=== PATIENT | female | born 1965 | race Caucasian/White ===

== ENCOUNTER 2018-01-19 16:33 | Emergency (ER) | payer OTHER ==
[~2018-01-19] VITALS: Ht 175.3 cm; Wt 74.8 kg
[2018-01-19] MEDS ORDERED: TRAMADOL HCL 50 MG TAB PO ONE (17:00)
--- NOTE | 2018-01-19 18:08 | Diagnostic Imaging Report ---
HAND 3+ VIEWS RIGHT - 3 views HISTORY: Pain COMPARISON: None available. FINDINGS: Bones: No acute displaced fracture. Osseous alignment is within normal limits. Joints: The joint spaces are well-maintained. Soft tissues: The soft tissues appear unremarkable. IMPRESSION: No acute osseous abnormality. Signed by: Dr. Ralph Alfaro M.D. on 01/19/2018 6:04 PM
== END 2018-01-19 18:57 | disposition home or self-care (01) ==
LOC: ER 16:33
DX: S62.614A Displaced fracture of proximal phalanx of right ring finger, initial encounter for closed fracture (principal); S00.531A Contusion of lip, initial encounter; W01.0XXA Fall on same level from slipping, tripping and stumbling without subsequent striking against object, initial encounter; Y92.019 Unspecified place in single-family (private) house as the place of occurrence of the external cause; I10 Essential (primary) hypertension; E89.0 Postprocedural hypothyroidism
CPT/HCPCS: 99283

== ENCOUNTER 2021-03-06 09:57 | Inpatient (IN) | payer OTHER ==
[2021-03-06] VITALS (16 sets, daily range): BP systolic 84–167; BP diastolic 61–88
[~2021-03-06] VITALS: Ht 175.3 cm; Wt 76.2 kg
[2021-03-06] MEDS ORDERED: SODIUM CHLORIDE 0.9% 1000ML 1,000 ML IV STA ×3 (10:04→11:20)
[2021-03-06] MEDS ORDERED: SODIUM CHLORIDE 0.9% 1000ML 2,000 ML ONE (10:14)
[2021-03-06 10:21] LABS: BASOPHILS % 0.8 % (0.0-1.0); EOSINOPHILS % 0.6 % (0.0-6.0); LYMPHOCYTES # (AUTO) 0.8 (1.0-3.2); LYMPHOCYTES % 16.7 % (18.0-39.1); MEAN CORPUSCULAR HEMOGLOBIN 41.5 pg (28-32); MEAN CORPUSCULAR HGB CONC 34.9 g/dL (31-35); MEAN CORPUSCULAR VOLUME 118.9 fL (81-99); MONOCYTES # (AUTO) 0.3 (0.2-0.8); MONOCYTES % 6.8 % (4.4-11.3); NEUTROPHILS # (AUTO) 3.5 (2.1-6.9); PLATELET COUNT 144 x10e3/uL (140-360); RED BLOOD COUNT 1.64 x10e6/uL (3.6-5.1); RED CELL DISTRIBUTION WIDTH 15.1 % (11.7-14.4)
[2021-03-06 10:43] LABS: HEMATOCRIT 19.5 % (34.2-44.1); HEMOGLOBIN 6.8 g/dL (12.0-16.0)
[2021-03-06] MEDS ORDERED: SODIUM CHLORIDE 0.9% 250ML 250 ML IV ONE (10:45)
[2021-03-06] MEDS ORDERED: PIPERACILLIN/TAZOBAC 3.375 GM in SODIUM CHLORIDE 0.9% 50ML 50 ML IV SCH (11:00)
[2021-03-06 11:10] LABS: ANISOCYTOSIS SLIGHT; PLATELET ESTIMATE ADEQUATE; PLATELET MORPHOLOGY COMMENT NORMAL; RBC MORPHOLOGY COMMENT ABNORMAL
[2021-03-06 11:16] LABS: ALANINE AMINOTRANSFERASE 83 IU/L (0-55); ALBUMIN 3.1 g/dL (3.5-5.0); ALBUMIN/GLOBULIN RATIO 1.4 (0.8-2.0); ALKALINE PHOSPHATASE 71 IU/L (40-150); ANION GAP 20.5 mmol/L (8-16); BLOOD UREA NITROGEN 10 mg/dL (7-26); BUN/CREATININE RATIO 12 (6-25); CALCIUM 7.3 mg/dL (8.4-10.2); CARBON DIOXIDE 16 mmol/L (22-29); CHLORIDE 103 mmol/L (98-107); CREATINE KINASE 342 IU/L (29-168); CREATININE, SERUM 0.84 mg/dL (0.57-1.11); EST GLOMERULAR FILTRATION RATE > 60 ML/MIN (60-); GLUCOSE 88 mg/dL (74-118); POTASSIUM 3.5 mmol/L (3.5-5.1); SODIUM 136 mmol/L (136-145)
[2021-03-06] MEDS ORDERED: KETOROLAC TROMETHAMINE 30 MG/ML VIAL IV STA (11:20)
[2021-03-06] MEDS ORDERED: ACETAMINOPHEN 325 MG TAB PO STA (11:20)
[2021-03-06] MEDS ORDERED: FENTANYL CITRATE/PF 100MCG/2 ML INJ IV PRN (13:15)
[2021-03-06] MEDS ORDERED: SODIUM CHLORIDE 0.9% 50ML 50 ML ONE (13:56)
[2021-03-06] MEDS ORDERED: IOPAMIDOL 370 MG/ML 200 ML INFUS..BTL INJ ONE (13:56)
[2021-03-06] MEDS ORDERED: SODIUM CHLORIDE 0.9% 500ML 500 ML ONE (14:01)
[2021-03-06] MEDS ORDERED: HYDROMORPHONE 1MG/1ML INJ IV STA (14:33)
[2021-03-06] MEDS ORDERED: HYDROMORPHONE 1MG/1ML INJ IV PRN (14:45)
[2021-03-06] MEDS ORDERED: ONDANSETRON HCL INJ 2MG/ML 2ML 2 MG/ML VIAL IV PRN (14:45)
[2021-03-06] MEDS ORDERED: SODIUM CHLORIDE 0.9% 250ML 250 ML ONE (14:53)
[2021-03-06 15:24] LABS: CLARITY,URINE SL CLOUDY (CLEAR); COLOR,URINE YELLOW (YELLOW); KETONES,URINE TRACE (NEGATIVE); LEUKOCYTE ESTERASE ,URINE NEGATIVE (NEGATIVE); NITRITE,URINE NEGATIVE (NEGATIVE); PROTEIN,URINE DIPSTICK 1+ (NEGATIVE); URINE UROBILINOGEN 0.2 mg/dL (0.2 - 1)
[2021-03-06 15:28] LABS: AMPHETAMINES SCREEN,URINE POSITIVE (NEGATIVE); BENZODIAZEPINES SCREEN,URINE NEGATIVE (NEGATIVE); PHENCYCLIDINE SCREEN,URINE NEGATIVE (NEGATIVE)
[2021-03-06 15:35] LABS: BACTERIA,URINE FEW /HPF; EPITHELIAL CELLS,URINE RARE /LPF; RBC,URINE 0-5 /HPF (0-5)
[2021-03-06] MEDS ORDERED: CEFTRIAXONE SOD 2 GM/100 ML ML IV SCH (16:45)
[2021-03-06] MEDS: ENOXAPARIN SOD INJ 40 MG/0.4 ML SYR SC SCH (17:00)
[2021-03-06] MEDS: CEFTRIAXONE SOD 2 GM 100 ML IV SCH (18:23)
[2021-03-06] MEDS: HYDROMORPHONE 1MG/1ML INJ IV PRN ×2 (18:23→23:31)
[2021-03-06 21:56] LABS: BASOPHILS % 0.6 % (0.0-1.0); EOSINOPHILS % 0.6 % (0.0-6.0); HEMATOCRIT 25.8 % (34.2-44.1); HEMOGLOBIN 9.1 g/dL (12.0-16.0); LYMPHOCYTES # (AUTO) 0.9 (1.0-3.2); LYMPHOCYTES % 12.1 % (18.0-39.1); MEAN CORPUSCULAR HEMOGLOBIN 36.7 pg (28-32); MEAN CORPUSCULAR HGB CONC 35.3 g/dL (31-35); MONOCYTES # (AUTO) 0.5 (0.2-0.8); MONOCYTES % 7.1 % (4.4-11.3); NEUTROPHILS # (AUTO) 5.5 (2.1-6.9); PLATELET COUNT 127 x10e3/uL (140-360); RED BLOOD COUNT 2.48 x10e6/uL (3.6-5.1); RED CELL DISTRIBUTION WIDTH 18.6 % (11.7-14.4)
[2021-03-06 22:16] LABS: CREATINE KINASE MB 9.9 ng/mL (0-5.0)
[2021-03-07] VITALS (25 sets, daily range): BP systolic 123–175; BP diastolic 62–146
[2021-03-07 04:53] LABS: BASOPHILS # (AUTO) 0.1 (0.0-0.1); BASOPHILS % 0.8 % (0.0-1.0); EOSINOPHILS # (AUTO) 0.1 (0.0-0.4); EOSINOPHILS % 1.1 % (0.0-6.0); HEMATOCRIT 24.1 % (34.2-44.1); HEMOGLOBIN 8.4 g/dL (12.0-16.0); LYMPHOCYTES # (AUTO) 0.8 (1.0-3.2); LYMPHOCYTES % 11.8 % (18.0-39.1); MEAN CORPUSCULAR HEMOGLOBIN 36.2 pg (28-32); MEAN CORPUSCULAR HGB CONC 34.9 g/dL (31-35); MEAN CORPUSCULAR VOLUME 103.9 fL (81-99); MONOCYTES # (AUTO) 0.5 (0.2-0.8); MONOCYTES % 7.9 % (4.4-11.3); NEUTROPHILS # (AUTO) 5.1 (2.1-6.9); NEUTROPHILS % 78.1 % (38.7-80.0); PLATELET COUNT 146 x10e3/uL (140-360); RED BLOOD COUNT 2.32 x10e6/uL (3.6-5.1); RED CELL DISTRIBUTION WIDTH 19.1 % (11.7-14.4)
[2021-03-07 05:20] LABS: ALANINE AMINOTRANSFERASE 60 IU/L (0-55); ALBUMIN 4.1 g/dL (3.5-5.0); ALBUMIN/GLOBULIN RATIO 1.5 (0.8-2.0); ALKALINE PHOSPHATASE 75 IU/L (40-150); ANION GAP 16.8 mmol/L (8-16); BLOOD UREA NITROGEN 10 mg/dL (7-26); BUN/CREATININE RATIO 13 (6-25); CALCIUM 8.1 mg/dL (8.4-10.2); CARBON DIOXIDE 21 mmol/L (22-29); CHLORIDE 99 mmol/L (98-107); CREATININE, SERUM 0.79 mg/dL (0.57-1.11); EST GLOMERULAR FILTRATION RATE > 60 ML/MIN (60-); POTASSIUM 3.8 mmol/L (3.5-5.1); SODIUM 133 mmol/L (136-145)
[2021-03-07 05:24] LABS: GLUCOSE 55 mg/dL (74-118)
[2021-03-07 05:51] LABS: CREATINE KINASE MB 11.8 ng/mL (0-5.0)
[2021-03-07 08:42] LABS: ANION GAP 17.7 mmol/L (8-16); BLOOD UREA NITROGEN 9 mg/dL (7-26); BUN/CREATININE RATIO 12 (6-25); CALCIUM 7.6 mg/dL (8.4-10.2); CARBON DIOXIDE 21 mmol/L (22-29); CHLORIDE 99 mmol/L (98-107); CREATININE, SERUM 0.74 mg/dL (0.57-1.11); EST GLOMERULAR FILTRATION RATE > 60 ML/MIN (60-); GLUCOSE 65 mg/dL (74-118); POTASSIUM 3.7 mmol/L (3.5-5.1); SODIUM 134 mmol/L (136-145)
[2021-03-07] MEDS ORDERED: HYDROMORPHONE 1MG/1ML INJ IV ONE (09:00)
[2021-03-07] MEDS: HYDROMORPHONE 1MG/1ML INJ IV PRN ×4 (12:27→23:35)
[2021-03-07] MEDS: ENOXAPARIN SOD INJ 40 MG/0.4 ML SYR SC SCH (16:48)
[2021-03-07] MEDS ORDERED: CEFTRIAXONE SOD 1 GM VIAL ONE (16:56)
[2021-03-07] MEDS: CEFTRIAXONE SOD 2 GM 100 ML IV SCH (18:01)
[2021-03-08] VITALS (25 sets, daily range): BP systolic 80–135; BP diastolic 48–96
[2021-03-08] MEDS ORDERED: CYANOCOBALAMIN INJ 1,000 MCG/ML VIAL IM ONE (02:45)
[2021-03-08] MEDS: HYDROMORPHONE 1MG/1ML INJ IV PRN ×5 (03:00→21:37)
[2021-03-08] MEDS: CYANOCOBALAMIN INJ 1,000 MCG/ML VIAL IM SCH (08:08)
[2021-03-08] MEDS: ASPIRIN 81 MG ENTERIC COATED PO SCH (08:10)
[2021-03-08] MEDS ORDERED: GADOBENATE DIMEGLUMINE 1 ML IV ONE (08:17)
[2021-03-08] MEDS ORDERED: SODIUM CHLORIDE 0.9% 50ML 50 ML ONE (13:52)
[2021-03-08] MEDS ORDERED: IOPAMIDOL 370 MG/ML 200 ML INFUS..BTL INJ ONE (13:53)
[2021-03-08] MEDS: METOPROLOL TARTRATE 25 MG TAB PO SCH (17:00)
[2021-03-08] MEDS: ENOXAPARIN SOD INJ 40 MG/0.4 ML SYR SC SCH (17:28)
[2021-03-09] VITALS (18 sets, daily range): BP systolic 103–141; BP diastolic 69–93
[2021-03-09] MEDS: HYDROMORPHONE 1MG/1ML INJ IV PRN ×5 (01:37→21:00)
[2021-03-09 04:47] LABS: BASOPHILS # (AUTO) 0.1 (0.0-0.1); BASOPHILS % 0.8 % (0.0-1.0); EOSINOPHILS # (AUTO) 0.1 (0.0-0.4); EOSINOPHILS % 1.8 % (0.0-6.0); HEMATOCRIT 25.1 % (34.2-44.1); HEMOGLOBIN 8.7 g/dL (12.0-16.0); LYMPHOCYTES # (AUTO) 0.8 (1.0-3.2); LYMPHOCYTES % 10.8 % (18.0-39.1); MEAN CORPUSCULAR HEMOGLOBIN 36.7 pg (28-32); MEAN CORPUSCULAR HGB CONC 34.7 g/dL (31-35); MEAN CORPUSCULAR VOLUME 105.9 fL (81-99); MONOCYTES # (AUTO) 0.7 (0.2-0.8); MONOCYTES % 8.7 % (4.4-11.3); NEUTROPHILS % 77.4 % (38.7-80.0); PLATELET COUNT 173 x10e3/uL (140-360); RED BLOOD COUNT 2.37 x10e6/uL (3.6-5.1); RED CELL DISTRIBUTION WIDTH 19.8 % (11.7-14.4)
[2021-03-09 05:08] LABS: % IRON SATURATION 9 % (15-50); IRON 27 ug/dL (50-170); TOTAL IRON BINDING CAPACITY 290 ug/dL (261-478); TRANSFERRIN 207 mg/dL (180-382)
[2021-03-09 05:16] LABS: ALANINE AMINOTRANSFERASE 30 IU/L (0-55); ALBUMIN 3.6 g/dL (3.5-5.0); ALBUMIN/GLOBULIN RATIO 1.3 (0.8-2.0); ALKALINE PHOSPHATASE 72 IU/L (40-150); ANION GAP 15.2 mmol/L (8-16); BLOOD UREA NITROGEN < 5 mg/dL (7-26); CALCIUM 7.8 mg/dL (8.4-10.2); CARBON DIOXIDE 25 mmol/L (22-29); CHLORIDE 96 mmol/L (98-107); CREATININE, SERUM 0.62 mg/dL (0.57-1.11); EST GLOMERULAR FILTRATION RATE > 60 ML/MIN (60-); GLUCOSE 86 mg/dL (74-118); POTASSIUM 3.2 mmol/L (3.5-5.1); SODIUM 133 mmol/L (136-145)
[2021-03-09 05:19] LABS: BUN/CREATININE RATIO 8 (6-25)
[2021-03-09] MEDS: ASPIRIN 81 MG ENTERIC COATED PO SCH (07:48)
[2021-03-09] MEDS: METOPROLOL TARTRATE 25 MG TAB PO SCH ×2 (08:17→17:00)
[2021-03-09] MEDS: CYANOCOBALAMIN INJ 1,000 MCG/ML VIAL IM SCH (08:31)
[2021-03-09] MEDS ORDERED: POTASSIUM CHLORIDE 20MEQ/100ML 200 ML IV ONE (09:30)
[2021-03-09] MEDS ORDERED: FENTANYL CITRATE/PF 100MCG/2 ML INJ ONE (14:21)
[2021-03-09] MEDS ORDERED: MIDAZOLAM HCL 5 MG/ML VIAL ONE (14:21)
[2021-03-09] MEDS: ENOXAPARIN SOD INJ 40 MG/0.4 ML SYR SC SCH (17:28)
[2021-03-10] VITALS (8 sets, daily range): BP systolic 112–132; BP diastolic 68–95
[2021-03-10] MEDS: HYDROMORPHONE 1MG/1ML INJ IV PRN ×5 (03:50→21:03)
[2021-03-10] MEDS: IRON SUCROSE 100 MG in SODIUM CHLORIDE 0.9% 100 ML 100 ML IV SCH (09:11)
[2021-03-10] MEDS: ASPIRIN 81 MG ENTERIC COATED PO SCH (09:11)
[2021-03-10] MEDS: CYANOCOBALAMIN INJ 1,000 MCG/ML VIAL IM SCH (09:11)
[2021-03-10] MEDS: METOPROLOL TARTRATE 25 MG TAB PO SCH ×2 (09:12→16:23)
[2021-03-10] MEDS ORDERED: SODIUM CHLORIDE 0.9% 250ML 250 ML ONE (09:30)
[2021-03-10] MEDS: POTASSIUM CHLORIDE 20 MEQ TAB CR PO ONE ×2 (09:32→12:26)
[2021-03-10 10:51] LABS: ANION GAP 17.4 mmol/L (8-16); BLOOD UREA NITROGEN < 5 mg/dL (7-26); CALCIUM 8.2 mg/dL (8.4-10.2); CARBON DIOXIDE 23 mmol/L (22-29); CHLORIDE 97 mmol/L (98-107); CREATININE, SERUM 0.55 mg/dL (0.57-1.11); EST GLOMERULAR FILTRATION RATE > 60 ML/MIN (60-); GLUCOSE 68 mg/dL (74-118); POTASSIUM 3.4 mmol/L (3.5-5.1); SODIUM 134 mmol/L (136-145)
[2021-03-10 10:52] LABS: BUN/CREATININE RATIO 9 (6-25)
[2021-03-10] MEDS ORDERED: POTASSIUM CHLORIDE 20 MEQ TAB CR PO STA (11:55)
[2021-03-10] MEDS: ENOXAPARIN SOD INJ 40 MG/0.4 ML SYR SC SCH (16:22)
[2021-03-10] MEDS: ONDANSETRON HCL INJ 2MG/ML 2ML 2 MG/ML VIAL IV PRN (21:03)
[2021-03-11 00:52] VITALS: BP 119/79
[2021-03-11] MEDS: HYDROMORPHONE 1MG/1ML INJ IV PRN ×5 (01:58→16:00)
[2021-03-11 05:11] VITALS: BP 109/74
[2021-03-11 07:54] VITALS: BP 113/80
[2021-03-11 08:34] VITALS: BP 113/80
[2021-03-11] MEDS: ASPIRIN 81 MG ENTERIC COATED PO SCH (10:00)
[2021-03-11] MEDS: CYANOCOBALAMIN INJ 1,000 MCG/ML VIAL IM SCH (10:00)
[2021-03-11] MEDS: IRON SUCROSE 100 MG in SODIUM CHLORIDE 0.9% 100 ML 100 ML IV SCH (10:00)
[2021-03-11] MEDS: METOPROLOL TARTRATE 25 MG TAB PO SCH ×2 (10:01→17:00)
[2021-03-11 11:59] VITALS: BP 130/87
[2021-03-11 15:47] VITALS: BP 106/69
[2021-03-11] MEDS: ONDANSETRON HCL INJ 2MG/ML 2ML 2 MG/ML VIAL IV PRN (17:49)
[2021-03-11] MEDS: ENOXAPARIN SOD INJ 40 MG/0.4 ML SYR SC SCH (19:04)
== END 2021-03-11 19:30 | disposition hospice, home (50) | DRG 871 ==
LOC: ER 10:07 → ERHOLD 12:18 → ICU 14:27 → MED/SURG3 03-09 18:42
PROVIDERS: ADMIT Internal Medicine; ATTEND Internal Medicine
PROC: 30233N1 Transfusion of Nonautologous Red Blood Cells into Peripheral Vein, Percutaneous Approach (ICD-10-PCS; 2021-03-06)
PROC: 0H9U3ZX Drainage of Left Breast, Percutaneous Approach, Diagnostic (ICD-10-PCS; principal; 2021-03-09 12:07)
DX: A41.9 Sepsis, unspecified organism (principal); R65.21 Severe sepsis with septic shock; I21.A1 Myocardial infarction type 2; C79.9 Secondary malignant neoplasm of unspecified site; E87.2 Acidosis; C78.7 Secondary malignant neoplasm of liver and intrahepatic bile duct; C78.00 Secondary malignant neoplasm of unspecified lung; C79.51 Secondary malignant neoplasm of bone; D83.9 Common variable immunodeficiency, unspecified; C50.919 Malignant neoplasm of unspecified site of unspecified female breast; D50.0 Iron deficiency anemia secondary to blood loss (chronic); C50.912 Malignant neoplasm of unspecified site of left female breast; Z51.5 Encounter for palliative care; E88.09 Other disorders of plasma-protein metabolism, not elsewhere classified; E53.8 Deficiency of other specified B group vitamins; E77.8 Other disorders of glycoprotein metabolism; Z20.822 Contact with and (suspected) exposure to COVID-19; E03.9 Hypothyroidism, unspecified; Z80.3 Family history of malignant neoplasm of breast
CPT/HCPCS: 36415; 51700; 70553; 71045; 71260; 74177; 78306; 80048; 80053; 80307; 80320; 81001; 82378; 82550; 82553; 82607; 82746; 82784; 82785; 83540; 83605; 83880; 84466; 84484; 85025; 85045; 86850; 86900; 86920; 87040; 87086; 88305; 88342; 93005; 93306; 99251; 99285; A9503; J0696; J1170; J1650; J1756; J1885; J2250; J2405; J2543; J3010; J3420; J3480; J7030; J7040; J7050; P9016; Q9967; U0002